=== PATIENT | female | born 1950 | race Caucasian/White ===

== ENCOUNTER → 2018-10-15 | Outpatient (CLI) | payer MEDICARE, OTHER ==
[~2018-10-15] MED LIST: CETI10TA22 PO; HYDR200T71 PO
--- NOTE | 2018-10-15 12:23 | KCIC ---
EXAM: PA, oblique and lateral views the right wrist PA, lateral views right hand AP, oblique and lateral views right thumb DATE: 10/15/2018 12:00 AM INDICATION: Right hand/wrist and thumb pain, weakness COMPARISON: No Prior FINDINGS: There is no evidence for acute fracture or dislocation. Joint spaces are grossly preserved without significant degenerative/proliferative change. IMPRESSION: No evidence of acute fracture or dislocation. Electronically signed by: Luis Ladd MD (10/15/2018 12:20 PM) [facility]
--- NOTE | 2018-10-15 12:23 | KCIC ---
EXAM: PA, oblique and lateral views the right wrist PA, lateral views right hand AP, oblique and lateral views right thumb DATE: 10/15/2018 12:00 AM INDICATION: Right hand/wrist and thumb pain, weakness COMPARISON: No Prior FINDINGS: There is no evidence for acute fracture or dislocation. Joint spaces are grossly preserved without significant degenerative/proliferative change. IMPRESSION: No evidence of acute fracture or dislocation. Electronically signed by: Luis Ladd MD (10/15/2018 12:20 PM) [facility]
== END | disposition home or self-care (01) ==
LOC: KCIC 10:33
PROVIDERS: ATTEND Family Medicine
DX: M79.644 Pain in right finger(s) (principal); R29.898 Other symptoms and signs involving the musculoskeletal system
CPT/HCPCS: 73110; 73120; 73140

== ENCOUNTER → 2019-10-26 | Outpatient (CLI) | payer MEDICARE, OTHER ==
[~2019-10-26] MED LIST changes: -CETI10TA22 PO; +CETI10TA24 PO
--- NOTE | 2019-10-26 17:14 | KCIC ---
HIP RIGHT 2 VIEW DATE: 10/26/2019 12:00 AM INDICATION: Reason: RIGHT HIP PAIN / Spl. Instructions: Pain w/certain leg motions / History: COMPARISON: None. FINDINGS: Bones: There is no evidence of acute fracture or dislocation. Joints: Mild degenerative changes of the hip joint Miscellaneous: Atherosclerotic vascular calcifications. Pelvic phleboliths. IMPRESSION: No acute osseous abnormality. Mild degenerative changes of the hip. Electronically signed by: Catalino Kovacs MD (10/26/2019 5:11 PM) [id number]
== END | disposition home or self-care (01) ==
LOC: KCIC 10:55
PROVIDERS: ATTEND Family Medicine
DX: M16.11 Unilateral primary osteoarthritis, right hip (principal); I25.10 Atherosclerotic heart disease of native coronary artery without angina pectoris; I87.8 Other specified disorders of veins
CPT/HCPCS: 73502

== ENCOUNTER → 2021-02-20 | Outpatient (CLI) | payer MEDICARE, OTHER ==
[~2021-02-20] MED LIST changes: -CETI10TA24 PO; +CETI10TA74 PO
--- NOTE | 2021-02-20 10:32 | KCIC ---
INDICATION: Reason: ABDOMINAL PAIN, FAM HX OF AAA, OSTEOPOROSIS / Spl. Instructions: / History: COMPARISON: CT report from May 2013 FINDINGS: Focused ultrasound images are obtained of the abdominal aorta. Regions of aortic plaque are identified. From proximal to distal the abdominal aorta is 25 mm proximally, 16 mm at midportion and 17 mm distal ly. The common iliac arteries measure approximately 12 mm. IMPRESSION: * Atherosclerotic disease is identified of the abdominal aorta with maximum diameter of 25 mm witho ut significant aneurysm. Electronically signed by: iVkram Arizmendi MD (02/20/2021 10:29 AM) [id number]
--- NOTE | 2021-02-20 14:00 | KCIC ---
INDICATION: Screening for osteopenia/osteoporosis. Reason: OSTEOPOROSIS / Spl. Instructions: / Hist ory: . Postmenopausal follow-up. COMPARISON: 01/28/2009 TECHNIQUE: Bone densitometry was performed through the lumbar spine and proximal femur. IMPRESSION: Lumbar Spine: BMD: 0.95 T-Score: -0.9 Range: Lower limits of normal. Decreased by 7 percent from prior. Proximal Femur: BMD: 0.73 T-Score: -1.8 Range: Osteopenic. Decreased by 13 percent from prior. World Health Organization Criteria for Bone Density: T-Score: > -1.0: Normal Range < -1.0 to -2.5: Osteopenic Range < -2.5: Osteoporotic Range Electronically signed by: Vikram Arizmendi MD (02/20/2021 1:58 PM) [id number]
== END ==
LOC: KCIC US 09:42
PROVIDERS: ATTEND Family Medicine
DX: M85.88 Other specified disorders of bone density and structure, other site (principal); I70.0 Atherosclerosis of aorta; Z78.0 Asymptomatic menopausal state; Z82.49 Family history of ischemic heart disease and other diseases of the circulatory system
CPT/HCPCS: 76770; 77080